=== PATIENT | female | born 1955 | race Caucasian/White ===

== ENCOUNTER → 2018-04-15 | Outpatient (CLI) | payer MEDICARE ==
--- NOTE | 2018-04-16 13:23 | MM ---
Reason for exam: screening (asymptomatic). Last mammogram was performed 2 years ago. History: Patient is postmenopausal. Took estrogen for 1 year 6 months beginning at age 47. Took progesterone for 1 year 6 months beginning at age 47. Physical Findings: A clinical breast exam by your physician is recommended on an annual basis and results should be correlated with mammographic findings. MG 3D Screening Mammo W/Cad Bilateral CC and MLO view(s) were taken. Prior study comparison: April 12, 2016, left breast MG 3d work up w/cad LT. April 09, 2016, bilateral MG 3d screening mammo w/cad. There are scattered fibroglandular densities. There are increased calcifications in the upper outer quadrant and upper central left breast at 2 o'clock and 12 o'clock. 2 o'clock calcifications extend over 2.3cm and 12 o'clock group of calcifications measure 3mm. No suspicious abnormality in the right breast. ASSESSMENT: Incomplete: need additional imaging evaluation, BI-RAD 0 RECOMMENDATION: Special view mammogram of the left breast. [facility] will attempt to contact patient to return for supplemental views.
== END | disposition home or self-care (01) ==
LOC: RADMAMWWP 15:01
PROVIDERS: ATTEND Family Medicine
DX: Z12.31 Encounter for screening mammogram for malignant neoplasm of breast (principal)
CPT/HCPCS: 77063; 77067

== ENCOUNTER → 2018-04-29 | Outpatient (CLI) | payer MEDICARE ==
--- NOTE | 2018-04-30 14:23 | MM ---
Reason for exam: additional evaluation requested from abnormal screening. Last mammogram was performed less than 1 month ago. History: Patient is postmenopausal. Took estrogen for 1 year 6 months beginning at age 47. Took progesterone for 1 year 6 months beginning at age 47. Physical Findings: Nurse did not find any significant physical abnormalities on exam. MG 3D Work Up W/Cad LT CC with magnification, ML with magnification, and ML view(s) were taken of the left breast. Prior study comparison: April 15, 2018, bilateral MG 3d screening mammo w/cad. April 12, 2016, left breast MG 3d work up w/cad LT. April 09, 2016, bilateral MG 3d screening mammo w/cad. There are scattered fibroglandular densities. Adjacent to vascular calcifications there is a 4 mm group of more suspicious calcifications on the CC thought to overlap on the ML. Therefore Stereo biopsy with CC from below approach is recommended. These results were verbally communicated with the patient and result sheet given to the patient on 04/29/18. ASSESSMENT: Suspicious, BI-RAD 4 RECOMMENDATION: Stereotactic core biopsy of the left breast. Called Dr. Rodriguez with mammographic findings and has scheduled an appointment for the patient for 05/05/18 at 4:[address] Linares. PRELIMINARY REPORT CALLED AND FAXED TO DR. LINARES ON 04/30/18.
== END | disposition home or self-care (01) ==
LOC: RADMAMWWP 14:35
PROVIDERS: ATTEND Family Medicine
DX: R92.8 Other abnormal and inconclusive findings on diagnostic imaging of breast (principal)
CPT/HCPCS: 77065; G0279; 77061

== ENCOUNTER → 2018-05-18 | Day surgery (SDC) | payer MEDICARE ==
[2018-05-18 13:36] VITALS: RESP 12
[2018-05-18 14:39] VITALS: BP 129/82; PULSE 53; TEMP 98.7
--- NOTE | 2018-05-18 15:09 | MM ---
EXAMINATION TYPE: STEREO CORE LEFT DATE OF EXAM: 05/18/2018 COMPARISON: Prior mammogram April 29 [id number] and older studies CLINICAL HISTORY: Abnormal mammogram TECHNIQUE: Stereotactic guided core biopsy of left breast with clip placement and follow-up two-view mammogram. FINDINGS: The procedure of stereotactic guided core biopsy was explained to the patient. Benefits, a lternatives, and risks were discussed. An informed consent was then obtained. The pathway for biopsy was chosen was inferior approach as group of calcifications are best seen on C C projection. I performed the localization, then surgeon, Dr. Linares performed the remainder of the procedure. A vacuum assisted biopsy gun was used to obtain multiple core samples. The patient tolerated the procedure well without any immediate complication. The patient was kept in the radiology department for short stay after the procedure and then discharged home in stable condi tion. Targeted calcifications are identified in specimen mammogram. Post biopsy mammogram shows the clip to appear in satisfactory position relative to the targeted area of concern on the preprocedure images. IMPRESSION: SUCCESSFUL, UNCOMPLICATED STEREOTACTIC GUIDED CORE BIOPSY OF AREA OF CONCERN IN THE LEFT BREAST, FULL PATHOLOGY RESULTS TO FOLLOW. Intermediate index of suspicion noted at time of procedure.
--- NOTE | 2018-05-18 16:35 | P.OP ---
Date of Procedure: 05/18/18 Preoperative Diagnosis: Abnormal mammogram left Postoperative Diagnosis: Abnormal left mammogram Defer to pathology Procedure(s) Performed: Left stereotactic core biopsy Anesthesia: local Surgeon: Sanjay Linares Estimated Blood Loss (ml): 5 Pathology: other (Left stereo core biopsy) Condition: stable Description of Procedure: PROCEDURE: The patient was placed on the mammotome table. She had been previously localized by the radiologist. Her skin was prepped and draped in the usual sterile fashion. The skin was anesthetized with 1% local Xylocaine. A waldemar incision was made with the #11 blade. The mammotome needle was then positioned in the skin and then positioned into the breast. The mammotome needle was fired. Sequential core biopsies were taken. After the specimens were removed, a clip was placed in the biopsy site. Position of the clip was confirmed with mammogram film. The patient tolerated the procedure well.
== END | disposition home or self-care (01) ==
LOC: RADMAMWWP 13:07
PROVIDERS: ATTEND Surgery
DX: N60.32 Fibrosclerosis of left breast (principal); N60.02 Solitary cyst of left breast; R92.8 Other abnormal and inconclusive findings on diagnostic imaging of breast; N60.92 Unspecified benign mammary dysplasia of left breast
CPT/HCPCS: 88305; 19081; A4648

== ENCOUNTER → 2018-11-09 | Outpatient (CLI) | payer MEDICARE ==
--- NOTE | 2018-11-09 10:35 | MM ---
Reason for exam: follow-up at short interval from prior study. Last mammogram was performed 6 months ago. History: Patient is postmenopausal. Benign MG stereo VAD BX LT of the left breast, May 18, 2018. Took estrogen for 1 year 6 months beginning at age 47. Took progesterone for 1 year 6 months beginning at age 47. Physical Findings: Nurse did not find any significant physical abnormalities on exam. MG 3D Diag Mammo W/Cad LT CC and MLO view(s) were taken of the left breast. Prior study comparison: April 29, 2018, left breast MG 3d work up w/cad LT. April 15, 2018, bilateral MG 3d screening mammo w/cad. Finding: There are coarse heterogeneous, grouped/clustered calcifications in the upper outer quadrant, middle position of the left breast. Previous mammotome biopsy in the left breast. No significant changes in finding since April 29, 2018 and April 15, 2018. These results were verbally communicated with the patient and result sheet given to the patient on 11/09/18. ASSESSMENT: Probably benign, BI-RAD 3 RECOMMENDATION: Follow-up diagnostic mammogram of both breasts in 6 months. Back on schedule for March 2019.
== END | disposition home or self-care (01) ==
LOC: RADMAMWWP 09:30
PROVIDERS: ATTEND Surgery
DX: R92.8 Other abnormal and inconclusive findings on diagnostic imaging of breast (principal)
CPT/HCPCS: 77065; G0279; 77061

== ENCOUNTER → 2021-06-01 | Outpatient (CLI) | payer MEDICARE, OTHER ==
--- NOTE | 2021-06-06 08:16 | MM ---
Reason for exam: screening (asymptomatic). Last mammogram was performed 2 years and 7 months ago. History: Patient is postmenopausal. Benign MG stereo VAD BX LT of the left breast, May 18, 2018. Took estrogen for 1 year 6 months beginning at age 47. Took progesterone for 1 year 6 months beginning at age 47. Physical Findings: A clinical breast exam by your physician is recommended on an annual basis and results should be correlated with mammographic findings. MG 3D Screening Mammo W/Cad Bilateral CC, MLO, and XCCL view(s) were taken. CV view(s) were taken of the right breast. Prior study comparison: November 09, 2018, left breast MG 3d diag mammo w/cad LT. April 15, 2018, bilateral MG 3d screening mammo w/cad. There are scattered fibroglandular densities. No significant changes when compared with prior studies. ASSESSMENT: Benign, BI-RAD 2 RECOMMENDATION: Routine screening mammogram of both breasts in 1 year.
== END | disposition home or self-care (01) ==
LOC: RADMAMWWP 11:52
PROVIDERS: ATTEND Family Medicine
DX: Z12.31 Encounter for screening mammogram for malignant neoplasm of breast (principal); Z78.0 Asymptomatic menopausal state; Z79.818 Long term (current) use of other agents affecting estrogen receptors and estrogen levels
CPT/HCPCS: 77063; 77067

== ENCOUNTER → 2021-07-24 | Outpatient (CLI) | payer MEDICARE, OTHER ==
--- NOTE | 2021-07-25 16:12 | BD ---
EXAMINATION TYPE: Axial Bone Density DATE OF EXAM: 07/24/2021 COMPARISON: NONE CLINICAL HISTORY: Height: 5 FT 7 1/2 IN Weight: 344 FRAX RISK QUESTIONS: Alcohol (3 or more units per day): NO Family History (Parent hip fracture): NO Glucocorticoids (More than 3mos): NO (Ex: prednisone, prednisolone, methylprednisolone, dexamethasone, and hydrocortisone). History of Fracture in Adulthood: YES Secondary Osteoporosis: 1. Type 1 Diabetes: NO 2. Hyperthyroidism: NO 3. Menopause before 45: UNSURE 4. Malnutrition: NO 5. Chronic liver disease: NO Rheumatoid Arthritis: NO Current Tobacco Use: NO RISK FACTORS HISTORY OF: History of Wrist Fracture: RT WRIST A CHILD Surgery to Spine/Hip(right/left)/Wrist (right/left): LUMBAR SURG When: 1983 Family History of Osteoporosis: NO Active: NO Diet low in dairy products/other sources of calcium: NO Postmenopausal woman: UNSURE WHEN MENOPAUSE WAS Take estrogen and/or progesterone medications: APPROX TOOK HRT FOR 6 MONTHS NOT NOW Lost more than 2 inches in height since high school: YES MEDICATIONS: Additional Medications: ZIAC, CHOLESTEROL MEDS , CYMBALTA, Additional History: EXAM MEASUREMENTS: Bone mineral density about the R hip (g/cm2): 1.117 Bone mineral density about the L hip (g/cm2): 0.950 T Score values are as follows: -----R Neck: 0.6 -----L Neck: -0.6 -----R Total: 1.1 -----L Total: -0.2 Bone mineral density has: DECREASED -6.4 % since study of: 2015 Bone mineral density about the L Wrist (g/cm2): 0.724 T Score values are as follows: -----Dist. R+U: 3.0 -----Prox. R+U: 0.5 -----Radius total: 0.8 Bone mineral density has: DECREASED -6.3 % since study of: 2015 IMPRESSION: Normal (Values between +1 and -1 indicate normal bone mass). Consider repeating this study in 5 year s or sooner if there is some new clinical indication. NOTE: T-SCORE=SD OF THE YOUNG ADULT MEAN.
== END | disposition home or self-care (01) ==
LOC: RADBDWWP 15:51
PROVIDERS: ATTEND Family Medicine
DX: Z78.0 Asymptomatic menopausal state (principal)
CPT/HCPCS: 77080